=== PATIENT | female | born 1980 | race Caucasian/White ===

== ENCOUNTER 2022-09-24 13:37 | Outpatient (CLI) | payer OTHER, SELFPAY ==
--- NOTE | ~2022-09-24 | MM_ITS ---
EXAMINATION: MM screening paul BI w sara HISTORY: Screening TECHNIQUE: Craniocaudal and mediolateral oblique 3-D tomosynthesis images were obtained and synthetic 2-D images were generated. CAD analysis was submitted and interpreted. COMPARISON: No prior mammogram is available for comparison at this institution. BREAST PARENCHYMAL COMPOSITION: There are scattered areas of fibroglandular density. FINDINGS: There is no evidence of suspicious mass, calcification, or architectural distortion to sugg est malignancy in either breast. There has been no suspicious interval change. IMPRESSION: 1. No mammographic evidence of malignancy. 2. Recommend routine screening mammography in one year. BI-RADS Category 1: Negative Reviewed, dictated and finalized at location A.
[2022-09-24 13:55] LABS: Immature Reticulocyte Fraction 7.2 % (2.0-16.52); Reticulocyte Hemoglobin Conten 37.2 pg (28.0-35.0); Reticulocyte Percent 1.69 % (0.50-1.50); Reticulocytes Absolute 0.08 M/mm3 (0.02-0.1)
[2022-09-24 14:45] LABS: Thyroid Stimulating Hormone Reflex 2.08 u/IU/mL (0.36-3.74)
[2022-09-24 14:46] LABS: Folic Acid > 20.0 ng/mL (8.6->20)
== END 2022-09-24 13:38 | disposition home or self-care (01) ==
PROVIDERS: Visit Provider Obstetrics & Gynecology Gynecology
DX: Z12.31 Encounter for screening mammogram for malignant neoplasm of breast (principal); R71.8 Other abnormality of red blood cells
CPT/HCPCS: 36415; 77063; 77067; 82746; 84443; 85046

== ENCOUNTER 2022-10-07 14:29 | Outpatient (CLI) | payer OTHER, SELFPAY ==
[2022-10-07 14:49] LABS: Hematocrit 45.5 % (35.0-49.0); Hemoglobin 15.7 g/dL (12.0-15.0)
[2022-10-07 16:24] LABS: Bilirubin,Total 0.4 mg/dL (0.00-1.00); Lactate Dehydrogenase 206 U/L (81-234)
== END 2022-10-07 14:30 | disposition home or self-care (01) ==
LOC: CHSLAB 14:33
DX: R71.8 Other abnormality of red blood cells (principal)
CPT/HCPCS: 36415; 82247; 83615; 85014; 85018

== ENCOUNTER 2023-06-24 14:50 | Outpatient (CLI) | payer OTHER, SELFPAY ==
[2023-06-24 15:17] LABS: Basophils Absolute Auto 0.08 K/mm3 (0.00-0.10); Eosinophils Absolute Auto 0.13 K/mm3 (0.02-0.50); Eosinophils Percent Auto 1.6 % (1.0-6.0); Hematocrit 45.8 % (35.0-49.0); Hemoglobin 15.1 g/dL (12.0-15.0); Immature Granulocyte Absolute 0.02 K/mm3 (0.00-0.00); Immature Granulocyte Percent A 0.2 % (0.0-0.0); Lymphocytes Absolute Auto 2.58 K/mm3 (1.10-4.50); Mean Corpuscular Hemoglobin 31.8 pg (27.0-31.0); Mean Corpuscular Volume 96.4 fL (78.0-102.0); Mean Platelet Volume 10.5 fl (9.2-11.8); Monocytes Percent Auto 7.2 % (2.0-11.0); Neutrophils Absolute Auto 4.9 K/mm3 (1.7-7.2); Platelet Count Result 331 K/mm3 (150-420); Red Blood Count 4.75 M/mm3 (4.20-5.40); Red Cell Distribution Width 12.1 % (11.6-14.4); White Blood Count 8.3 K/mm3 (4.8-10.8)
[2023-06-24 15:29] LABS: Anion Gap 7 mmol/L (8-16); Blood Urea Nitrogen 11 mg/dL (7-18); Calcium 9.4 mg/dL (8.5-10.1); Carbon Dioxide 30 mmol/L (21-32); Chloride 102 mmol/L (98-108); Estimated Glomerular Filt Rate > 60; Glucose 89 mg/dL (70-99); Osmolality Calculated 286 mOsm/kg (285-295); Potassium 3.9 mmol/L (3.5-5.1); Sodium 139 mmol/L (136-145)
[2023-06-24 15:32] LABS: Hemoglobin A1C 5.1 % (<5.7)
== END 2023-06-24 14:51 | disposition home or self-care (01) ==
LOC: CHSLAB 14:56
DX: I82.403 Acute embolism and thrombosis of unspecified deep veins of lower extremity, bilateral (principal); R63.5 Abnormal weight gain
CPT/HCPCS: 36415; 80048; 83036; 85025

== ENCOUNTER 2023-09-27 14:46 | Outpatient (CLI) | payer OTHER, SELFPAY ==
--- NOTE | ~2023-09-27 | MM_ITS ---
EXAMINATION: MM screening paul BI w sara HISTORY: Screening mammogram TECHNIQUE: Craniocaudal and mediolateral oblique 3-D tomosynthesis images were obtained and synthetic 2-D images were generated. CAD analysis was submitted and interpreted. COMPARISON: 09/20/2022 bilateral screening mammogram examination BREAST PARENCHYMAL COMPOSITION: There are scattered areas of fibroglandular density. FINDINGS: There is no evidence of suspicious mass, calcification, or architectural distortion to sugg est malignancy in either breast. There has been no suspicious interval change. IMPRESSION: 1. No mammographic evidence of malignancy. 2. Recommend routine screening mammography in one year. BI-RADS Category 1: Negative Reviewed, dictated and finalized at location A.
[2023-09-27 15:17] LABS: Basophils Absolute Auto 0.05 K/mm3 (0.00-0.10); Basophils Percent Auto 0.5 % (0.0-1.0); Eosinophils Absolute Auto 0.22 K/mm3 (0.02-0.50); Eosinophils Percent Auto 2.4 % (1.0-6.0); Hematocrit 46.8 % (35.0-49.0); Hemoglobin 15.6 g/dL (12.0-15.0); Immature Granulocyte Absolute 0.05 K/mm3 (0.00-0.00); Immature Granulocyte Percent A 0.5 % (0.0-0.0); Lymphocytes Absolute Auto 3.11 K/mm3 (1.10-4.50); Lymphocytes Percent Auto 33.7 % (18.0-42.0); Mean Corpuscular HGB Conc 33.3 g/dL (32-36); Mean Corpuscular Hemoglobin 31.8 pg (27.0-31.0); Mean Corpuscular Volume 95.5 fL (78.0-102.0); Monocytes Absolute Auto 0.69 K/mm3 (0.10-0.90); Monocytes Percent Auto 7.5 % (2.0-11.0); Neutrophils Absolute Auto 5.12 K/mm3 (1.70-7.20); Neutrophils Percent Auto 55.4 % (50.0-70.0); Platelet Count Result 347 K/mm3 (150-420); Red Cell Distribution Width 12.7 % (11.6-14.4); White Blood Count 9.2 K/mm3 (4.8-10.8)
== END 2023-09-27 14:47 | disposition home or self-care (01) ==
LOC: CHSIMG 14:48
PROVIDERS: Visit Provider Obstetrics & Gynecology Gynecology
DX: Z12.31 Encounter for screening mammogram for malignant neoplasm of breast (principal); T88.7XXA Unspecified adverse effect of drug or medicament, initial encounter
CPT/HCPCS: 36415; 77063; 77067; 85025

== ENCOUNTER 2024-07-26 15:11 | Outpatient (CLI) | payer OTHER, SELFPAY ==
[2024-07-26 15:26] LABS: Appearance Urine Clear (Clear); Bilirubin Urine Negative (Negative); Blood Urine Negative (Negative); Color Urine Light Yellow (Yellow); Glucose Urine UA Negative (Negative); Ketones Urine Negative (Negative); Nitrate Urine Negative (Negative); Protein Urine Negative (Negative); Urobilinogen Urine 0.2 mg/dL (0.2-1.0)
[2024-07-26 15:30] LABS: Add Urine Microscopic? NO; Leukocyte Esterase Ur Negative LEU/UL (Negative)
== END 2024-07-26 15:12 | disposition home or self-care (01) ==
DX: R35.0 Frequency of micturition (principal)
CPT/HCPCS: 81003

== ENCOUNTER 2024-11-02 14:42 | Outpatient (CLI) | payer OTHER, SELFPAY ==
--- NOTE | ~2024-11-02 | MM_ITS ---
EXAMINATION: MM screening paul BI w sara HISTORY: Screening TECHNIQUE: Craniocaudal and mediolateral oblique 3-D tomosynthesis images were obtained and synthetic 2-D images were generated. CAD analysis was submitted and interpreted. COMPARISON: Comparison to multiple prior studies sequentially, with oldest reviewed study dated 09/24. BREAST PARENCHYMAL COMPOSITION: Not dense: There are scattered areas of fibroglandular density. FINDINGS: There is no mammographic evidence for malignancy in the right breast. There are dense left axillary lymph nodes not seen on prior study. IMPRESSION: 1. Dense left axillary lymph nodes, not definitely seen on prior study. 2. Left axillary ultrasound recommended. BI-RADS Category 0: Incomplete: Needs additional imaging evaluation. Reviewed, dictated and finalized at location A.
--- OUTSIDE RECORDS SUMMARY | 2024-11-03 14:38 | XMS_ITS | Clinical Summary ---
Author Organization [facility] Address [address] [place] [address] Care Team Providers Care Molder Feeder Name Role Phone Esa Lopez MD Primary Care Provider [phone] Allergies Active Allergy Reactions Criticality Noted Date Comments Hydrocodone Nausea Only 07/24/2024 Medications rivaroxaban (XARELTO) 15 MG tablet Take 20 mg by mouth daily with supper. Active hydrOXYzine (VISTARIL) 25 MG capsule Take 1 capsule (25 mg total) by mouth 3 (three) times daily as needed for Anxiety. 15 capsule 06/01/2024 Active omeprazole (PRILOSEC) 40 MG capsule Take 1 capsule (40 mg total) by mouth daily. Active medroxyPROGESTE Thien (DEPO-PROVERA) 150 MG/ML injection Inject 1 mL (150 mg total) into the muscle every 3 (three) months. 05/04/2024 Active famotidine (PEPCID) 40 MG tablet Take 1 tablet (40 mg total) by mouth nightly at bedtime. 06/05/2024 Active Social History Tobacco Use Types Packs/Day Years Used Date Smoking Tobacco: Never Smokeless Tobacco: Never Tobacco Cessation:Counseling Given: Not Answered Alcohol Use Standard Drinks/Week Comments Not Currently 0 (1 standard drink = 0.6 oz pur e alcohol) Comments No Sex and Gender Information Value Date Recorded Sex Assigned at Female 07/24/2024 1:28 PM CLAY MODELER Legal Sex Female 11:11 PM CLAY MODELER Gender Identity Not on file Sexual Orientation Not on file Last Filed Vital Signs Vital Sign Reading Time Taken Comments Blood Pressure 106/66 07/24/2024 3:30 PM CLAY MODELER Pulse 88 07/24/2024 3:30 PM CLAY MODELER Temperature 38.1 C (100.6 F) 07/24/2024 12:59 PM CLAY MODELER Respiratory Rate 18 07/24/2024 3:30 PM CLAY MODELER Oxygen Saturation 99% 07/24/2024 3:30 PM CLAY MODELER Inhaled Oxygen Concentration - - Weight 72.8 kg (160 lb 8 oz) 07/24/2024 12:59 PM CLAY MODELER Height 160 cm (5' 3 ) 07/24/2024 12:59 PM CLAY MODELER Body Mass Index 28.43 07/24/2024 12:59 PM CLAY MODELER Plan of Treatment Health Maintenance Due Date Last Done Comments Annual Physical 11/06/1983 Hepatitis C 1998 Hepatitis B Vaccines (1 of 3 - 19+ 3-dose series) 11/06/1999 Cervical Cancer Screening Pap Smear (Age 30 to 64) Every 3 Years 05/18/2020 05/18/2017 Mammogram Screening 2020 Cervical Cancer Screening Pap with HPV Testing (Age 30 to 64) Every 5 Years 05/18/2022 05/18/2017 Cervical Cancer Screening with HPV 05/18/2022 COVID-19 Vaccine ( season) 2024 DTaP, Tdap and Td Vaccines (7 - Td or Tdap) 12/19/2024 12/19/2014, 02/09/1995, 02/06/1986, Additional history exists HPV Vaccines Aged Out No longer eligi ble based on patient's age to complete this topic Meningococcal B Vaccine Aged Out No l onger eligible based on patient's age to complete this topic Meningococcal Vaccine Aged Out No librado rosa eligible based on patient's age to complete this topic Pneumococcal Vaccine: Pediatrics (0 to 5 Years) and At-Risk Patients (6 to 49 Years) Aged Out No longer eligible based on patient's age to complete this topic RSV Immunizations Under 20 Months Aged Out No longer eligible based on patient's age to complete this topic Insurance [facility] Care Teams Molder Feeder Relationship Specialty Start Date End Date Esa Lopez MD [address] [address] [place] [address] PCP - General INTERNAL MEDICINE 06/01/24
== END 2024-11-02 14:43 | disposition home or self-care (01) ==
LOC: CHSIMG 14:44
PROVIDERS: Visit Provider Obstetrics & Gynecology Gynecology
DX: Z12.31 Encounter for screening mammogram for malignant neoplasm of breast (principal); R92.8 Other abnormal and inconclusive findings on diagnostic imaging of breast
CPT/HCPCS: 77063; 77067

== ENCOUNTER 2024-11-06 09:00 | Outpatient (CLI) | payer OTHER, SELFPAY ==
--- NOTE | ~2024-11-06 | US_ITS ---
Left axillary ULTRASOUND (Doppler ultrasound interrogation techniques used as needed for this exam.) Ordering provider: Karolina Stevenson MD History: . Abnormal mamm . Comparison: None. FINDINGS/impression: Lymph node is seen measuring 1 x 1 x 1 cm. Hyperechoic areas are seen measuring 1.3 x 1 x 1.2 cm and 1 x 1.1 x 1 cm which may be small lipomas o r focal normal tissue. Follow-up advised. Reviewed, dictated and finalized at location A.
--- OUTSIDE RECORDS SUMMARY | 2024-11-06 09:26 | XMS_ITS | Clinical Summary ---
Author Organization [facility] Address [address] [place] [address] Care Team Providers Care Global Chief Creative Officer Name Role Phone Esa Lopez MD Primary Care Provider [phone] Allergies Active Allergy Reactions Criticality Noted Date [...] Sex Assigned at Female 07/24/2024 1:28 PM DIGITAL ACCOUNT DIRECTOR Legal Sex Female 11:11 PM DIGITAL ACCOUNT DIRECTOR Gender Identity Not on file Sexual Orientation Not on file Last Filed Vital Signs Vital Sign Reading Time Taken Comments Blood Pressure 106/66 07/24/2024 3:30 PM DIGITAL ACCOUNT DIRECTOR Pulse 88 07/24/2024 3:30 PM DIGITAL ACCOUNT DIRECTOR Temperature 38.1 C (100.6 F) 07/24/2024 12:59 PM DIGITAL ACCOUNT DIRECTOR Respiratory Rate 18 07/24/2024 3:30 PM DIGITAL ACCOUNT DIRECTOR Oxygen Saturation 99% 07/24/2024 3:30 PM DIGITAL ACCOUNT DIRECTOR Inhaled Oxygen Concentration - - Weight 72.8 kg (160 lb 8 oz) 07/24/2024 12:59 PM DIGITAL ACCOUNT DIRECTOR Height 160 cm (5' 3 ) 07/24/2024 12:59 PM DIGITAL ACCOUNT DIRECTOR Body Mass Index 28.43 07/24/2024 12:59 PM DIGITAL ACCOUNT DIRECTOR Plan of Treatment Health Maintenance Due Date [...] patient's age to complete this topic Insurance [facility] Care Teams Global Chief Creative Officer Relationship Specialty Start Date End Date Esa Lopez MD [address] [address] [place] [address] PCP - General INTERNAL MEDICINE 06/01/24
== END 2024-11-06 09:01 | disposition home or self-care (01) ==
LOC: CHSIMG 09:02
PROVIDERS: Visit Provider Obstetrics & Gynecology Gynecology
DX: R92.8 Other abnormal and inconclusive findings on diagnostic imaging of breast (principal)
CPT/HCPCS: 76882

== ENCOUNTER 2025-02-20 14:06 | Outpatient (CLI) | payer OTHER, SELFPAY ==
--- NOTE | ~2025-02-20 | US_ITS ---
US axilla LT 02/20/2025 14:23 Indication: Left axillary swelling. Procedure: High-resolution ultrasound of the left axilla Comparison: Ultrasound dated 11/06/2024 Findings: There are multiple nonenlarged lymph nodes. There is an oval hypoechoic mass measuring 11 mm which is echogenic peripherally and hypoechoic internally. This measures 11 x 8 x 8 mm and is unchanged from prior study allowing for technique. There is a similar appearing 1.4 cm mass, also unchanged. Impression: 1: Stable likely benign left axillary lymph nodes. BI-RADS CATEGORY 3-PROBABLY BENIGN FINDING RECOMMENDATION: Six-month follow-up bilateral mammogram and left axillary ultrasound recommended. Reviewed, dictated and finalized at location A. Impression: 1: Stable likely benign left axillary lymph nodes. BI-RADS CATEGORY 3-PROBABLY BENIGN FINDING RECOMMENDATION: Six-month follow-up bilateral mammogram and left axillary ultra sound recommended.
== END 2025-02-20 14:07 | disposition home or self-care (01) ==
PROVIDERS: Visit Provider Surgery
DX: R22.30 Localized swelling, mass and lump, unspecified upper limb (principal)
CPT/HCPCS: 76882

== ENCOUNTER 2025-06-20 08:49 | Outpatient (CLI) | payer OTHER, SELFPAY ==
--- NOTE | ~2025-06-20 | MM_ITS ---
EXAMINATION: MM diagnostic paul BI w sara INDICATION: 44-year old female; short-term follow up prominent lymph nodes in the left axilla and bilateral annual mammography. COMPARISON: 11/02/2024 through 09/24/2022. TECHNIQUE: Bilateral breast Digital breast tomosynthesis CC and MLO views were obtained with computer-aided detection to assist in interpretation of the study. FINDINGS: There are scattered areas of fibroglandular density. Prominent lymph node seen in the left axilla redemonstrated are unchanged. No focal dominant mass, architectural distortion, or suspicious microcalcifications are identified. IMPRESSION: Stable benign appearing left axillary lymph nodes. Benign mammogram. No evidence of malignancy in either breast. RECOMMEND: Routine annual mammography in 12 months. BI-RADS 2, BENIGN Reviewed, dictated and finalized at location A. MATIC GLOVE FORMER IMPRESSION: Stable benign appearing left axillary lymph nodes. Benign mammogram . No evidence of malignancy in either breast. RECOMMEND: Routine annual mammography in 12 months. BI-RADS 2, BENIGN
== END 2025-06-20 08:50 | disposition home or self-care (01) ==
LOC: CHSIMG 08:50
PROVIDERS: Visit Provider Surgery
DX: R22.30 Localized swelling, mass and lump, unspecified upper limb (principal)
CPT/HCPCS: 77062; 77066; G0279